=== PATIENT | male | born 1950 | race Caucasian/White ===

== ENCOUNTER 2023-07-18 10:07 | Emergency (ER) | payer MEDICARE, BC | END 2023-07-18 19:08 | disposition short-term general hospital (02) | LOC: ED 10:07 | DX: M47.26 Other spondylosis with radiculopathy, lumbar region (principal); R53.1 Weakness; I10 Essential (primary) hypertension; E78.00 Pure hypercholesterolemia, unspecified; Z79.899 Other long term (current) drug therapy ==